=== PATIENT | female | born 1985 | race Caucasian/White ===

== ENCOUNTER 2016-07-30 21:43 | Emergency (ER) | payer SELFPAY ==
[2016-07-30 22:00] VITALS: BP 128/88
--- NOTE | 2016-07-30 22:35 | ED Physician Documentation ---
Upper Extremity Injury - HISTORIAN Historian: patient - HPI Stated Complaint: rt arm injury Chief Complaint: Upper Extremity Injury Onset: yesterday Where: home Context: fall Further Comments: yes (31 year old female patient presents with right wrist pain. States she fell on a toy last night, reports continued pain, worse with movement. States she took aleve this morning.) - ROS CONST: no problems CVS/RESP: none NEURO: none MS/SKIN/LYMPH: none GI/: denies: nausea, vomiting - PAST HX Past History: Rt handed, other (HYST) Allergies/Adverse Reactions: Allergies Allergy/AdvReac Type Severity Reaction Status Date / Time Sulfa (Sulfonamide Allergy Intermediate edema Verified 07/30/16 21:56 Antibiotics) Home Medications: Ambulatory Orders Medication Instructions Recorded NK [NK] 07/30/16 - SOCIAL HX Smoking History: non-smoker - FAMILY HX Family History: denies: none - VITAL SIGNS Vital Signs: Vital Signs Temp Pulse Resp BP Pulse Ox 98 F 87 16 128/88 99 07/30/16 21:44 07/30/16 21:44 07/30/16 21:44 07/30/16 21:44 07/30/16 21:44 - REVIEWED ASSESSMENTS Nursing Assessment Reviewed: Yes Vitals Reviewed: Yes ED Results Lab/Radiology - Radiology Radiology Impressions: 3 views of the right wrist Clinical history: Right wrist pain Findings: No acute fracture dislocation is identified. Alignment is normal. The soft tissues are unremarkable. Impression: Negative - Orders Orders: ED Orders Category Date Time Status WRIST 3 VIEWS OR MORE [RAD] Stat Exams 07/30/16 Ordered Ketorolac Tromethamine [Toradol] Med 07/30/16 22:35 Once 60 mg IM NOW ONE Upper Extremity Injury Physic - Physical Exam General Appearance: mild distress Hand: normal inspection, non-tender, no evidence of injury, normal ROM Wrist: normal inspection, ecchymosis (right), limited ROM (right), pain (right) , soft tissue tenderness (right) Shoulder: normal inspection, non-tender, no evidence of injury, normal ROM Neuro/Vascular/Tendon: no vascular compromise, motor nml, sensation nml, ROM nml Skin: warm,dry, other (abrasion right elbow) Resp/CVS: reg. rate & rhythm Discharge Clincal Impression: Sprain of wrist, right Qualifiers: Encounter type: initial encounter Qualified Code(s): S63.501A - Unspecified sprain of right wrist, initial encounter Referrals: Betty Patton PRN [Primary Care Provider] - 2 Days Additional Instructions: Ice Rest Elevation If you are unable to bear weight and continuing to have signficant pain on day 3 -4; see your PCP for re-evaluation and additional xrays. You may use Tylenol every 4hour as needed for pain. Limit your dose to less than 4 G per day. Alternate with Ibuprofen 600-800mg three times a day with food as needed. Do not take for more than 5 days in a row. Home Medications: Ambulatory Orders NK [NK] 07/30/16 Condition: Stable Disposition: 01 HOME, SELF-CARE Decision to Admit: NO Decision Time: 22:35
[2016-07-30] MEDS: KETOROLAC TROMETHAMINE 60 MG/2 ML VIAL IM ONE (22:41)
--- NOTE | 2016-07-31 06:52 | Diagnostic Imaging Report ---
CAMILLE QUIÑONEZ (LITA) - ER~ [facility] [address] [address] ~ ~ ~ ~ Report Submission Date: Jul 30, 2016 10:32:57 PM CDT Patient ~ Study Name: AMERICA BRUNO ~ Date: Jul 30, 2016 10:11:15 PM CDT ~ Modality Type: CR Gender: F ~ Description: UPPER EXTREMITY : 83 ~ Institution: [facility] Physician: CAMILLE QUIÑONEZ) - ER ~ ~ ~ ~ 3 views of the right wrist Clinical history: Right wrist pain Findings: No acute fracture dislocation is identified. Alignment is normal. The soft tissues are unremarkable. Impression: Negative ~ Electronically signed on Jul 30, 2016 10:32:57 PM CDT by: George VILLEGAS
== END 2016-07-30 22:49 | disposition home or self-care (01) ==
LOC: ED 21:43
DX: S63.501A Unspecified sprain of right wrist, initial encounter (principal); X58.XXXA Exposure to other specified factors, initial encounter; Y93.9 Activity, unspecified; Y99.9 Unspecified external cause status
CPT/HCPCS: 73110; J1885; 96372; 99283

== ENCOUNTER 2017-03-06 20:31 | Emergency (ER) | payer SELFPAY ==
--- NOTE | 2017-03-06 22:07 | ED Physician Documentation ---
Fall - HISTORIAN Historian: patient - HPI Stated Complaint: FALL; RLE INJ Chief Complaint: Fall Onset: just prior to arrival Where: home Context: tripped (on stairs) r: mild Associated Symptoms:: no loss of consciousness Location of Pain/Injury: lower extremity (right), hip (right) Injury to Right Extremity: hip, leg Injury to Left Extremity: none Further Comments: yes (31 year old female patient presents with complaint of right lower leg and foot pain. Patient states she missed a step, fell down 3-4 stairs. Denies LOC, able to ambulate.) - ROS CONST: no problems NEURO: denies: dizziness, anxiety, depression MS/SKIN/LYMPH: neck pain. denies: back pain EYES/ENT: none CVS/RESP: none GI/: denies: nausea, vomiting - PAST HX Past History: none Allergies/Adverse Reactions: Allergies Allergy/AdvReac Type Severity Reaction Status Date / Time Sulfa (Sulfonamide Allergy Intermediate edema Verified 03/06/17 21:03 Antibiotics) Home Medications: Ambulatory Orders Medication Instructions Recorded Baclofen [Liorasal] 10 mg PO TID PRN #30 tablet 03/06/17 Ketorolac Tromethamine [Toradol] 10 mg PO TID #15 tablet 03/06/17 - SOCIAL HX Smoking History: cigarettes - FAMILY HX Family History: denies: none - VITAL SIGNS Vital Signs: Vital Signs Temp Pulse Resp BP Pulse Ox 98.5 F 87 18 133/85 99 03/06/17 20:39 03/06/17 20:39 03/06/17 20:39 03/06/17 20:39 03/06/17 20:39 - REVIEWED ASSESSMENTS Nursing Assessment Reviewed: Yes Vitals Reviewed: Yes Progress - Progress Progress: Ecchymosis noted on right medial knee area; no c/o knee pain. No abrasions or ecchymosis noted on right lower extremity, foot or hip. After exam - patient now c/o neck pain, re-assessed - tenderness at C5-6 midline. Patient's mother now reports "patient isn't answering questions correctly". Oriented x 3, answers all of my questions appropriately. Will progress with CT c-spine and head. Reviewed all CTs and xray results with patient, patient requesting multiple days off work. Reviewed discharge plan, medicated for pain with toradol and norflex. 03/07/2017 0830 Answered phone call from patient, requesting additional days off work. Has not picked up prescriptions yet. Explained she was clear to go to work, would need to see PCP if she wanted additional time off. ED Results Lab/Radiology - Orders Orders: ED Orders Category Date Time Status CT BRAIN W/O CONTRAST Stat Exams 03/06/[address] C-SPINE W/O CONTRAST Stat Exams 03/06/17 Ordered FOOT 3 VIEWS OR MORE [RAD] Stat Exams 03/06/17 Ordered RT HIP 1V [RAD] Stat Exams 03/06/17 Ordered TIBIA & FIBULA 2 VIEW [RAD] Stat Exams 03/06/17 Ordered Ketorolac Tromethamine [Toradol] Med 03/06/17 22:02 Discontinued 60 mg IM NOW ONE Orphenadrine Citrate [Norflex] Med 03/06/17 22:02 Discontinued 60 mg IM NOW ONE Fall Physical Exam - Physical Exam General Appearance: moderate distress Head: non-tender, no swelling, no obvious injury Neck: painless ROM, trachea midline Eye: KELLIE, EOMI, lids & conjunct. nml ENT: nml external inspection, no dental injury, no oral injury, airway nml Resp/CVS: chest non-tender, no ecchymosis, breath sounds nml, no resp. distress , heart sounds nml Abdomen: soft, no organomegaly, normal bowel sounds, no abdominal bruit, no distension Neuro: oriented x3, CN's nml as tested, sensation nml, motor nml, mood/affect nml, respite worker nml, reflexes nml, respite worker symmetrical Skin: color nml, no rash, ecchymosis (right medial knee), nml palp., dry Back: normal inspection, no CVA tenderness Extremities: atraumatic, pelvis stable, hips non-tender, no pedal edema, nml ROM , nml color/temp Joint: joints nml, nml ROM - [place] Coma Score Eyes Open: Spontaneous Speech: Oriented Motor: Obeys Commands Discharge Clincal Impression: Fall (on) (from) other stairs and steps, initial encounter Contusion of left leg Qualifiers: Encounter type: initial encounter Qualified Code(s): S80.12XA - Contusion of left lower leg, initial encounter Closed head injury without loss of consciousness Qualifiers: Encounter type: initial encounter Qualified Code(s): S09.90XA - Unspecified injury of head, initial encounter Prescriptions: Baclofen [Liorasal] 10 mg PO TID PRN #30 tablet PRN Reason: Spasms Ketorolac Tromethamine [Toradol] 10 mg PO TID #15 tablet Referrals: Betty Patton, PRN [Primary Care Provider] - 2 Days Additional Instructions: Rest Ice to leg and hip back feeder plywood layup line your 2 prescriptions and start them in the morning. Condition: Stable Disposition: 01 HOME, SELF-CARE Decision to Admit: NO Decision Time: 22:07
[2017-03-06] MEDS: ORPHENADRINE CITRATE 60 MG/2ML IM ONE (22:20)
[2017-03-06] MEDS: KETOROLAC TROMETHAMINE 60 MG/2 ML VIAL IM ONE (22:20)
[2017-03-06 22:44] VITALS: BP 121/70
--- NOTE | 2017-03-07 06:46 | Diagnostic Imaging Report ---
CAMILLE QUIÑONEZ (LITA) - ER [facility] [address] [facility] [address] 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 Meza white differentiation is intact. There is no intracranial hemorrhage. Left maxillary sinus fluid is present. The skull is intact. Impression: 1. Intact brain and skull. 2. Left maxillary sinus fluid versus retention cyst. Electronically signed on Mar 06, 2017 9:37:45 PM WARP KNITTING MACHINE OPERATOR by: Asim VILLEGAS
--- NOTE | 2017-03-07 06:46 | Diagnostic Imaging Report ---
CAMILLE QUIÑONEZ (LITA) - [facility] [address] [facility] [address] [address] Report Submission Date: Mar 06, 2017 9:39:30 PM SUEDING AND BUFFING MACHINE OPERATOR Patient Study Name: AMERICA BRUNO Date: Mar 06, 2017 9:06:08 PM SUEDING AND BUFFING MACHINE OPERATOR Modality Type: CT\SR Gender: F Description: CT C-SPINE W/O CONTRAS : 83 Institution: [facility] Physician: CAMILLE QUIÑONEZ) - ER Computed tomography of the cervical spine without contrast History: FALL, PAIN, HIT BACK OF HEAD/NECK ON GROUND, NO LOSS OF CONSCIOUSNESS Findings: Transverse cervical spine sections are obtained without contrast revealing left maxillary sinus mucosal thickening and fluid. The cervical spine is intact without fracture, disc space narrowing, subluxation, paraspinal swelling. Impression: 1. Acute and chronic left maxillary sinusitis. 2. Intact cervical spine. Electronically signed on Mar 06, 2017 9:39:30 PM SUEDING AND BUFFING MACHINE OPERATOR by: Asim VILLEGAS
--- NOTE | 2017-03-07 06:47 | Diagnostic Imaging Report ---
CAMILLE QUIÑONEZ (LITA) - ER [facility] [address] [facility] [address] 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 Electronically signed on Mar 06, 2017 9:40:23 PM GROUNDSKEEPER PORTER by: Asim VILLEGAS
--- NOTE | 2017-03-07 06:47 | Diagnostic Imaging Report ---
CAMILLE QUIÑONEZ (LITA) - [place] [address] [facility] [address] [address] Report Submission Date: Mar 06, 2017 9:39:59 PM SOFT HAT BINDER Patient Study Name: AMERICA BRUNO Date: Mar 06, 2017 9:17:02 PM SOFT HAT BINDER Modality Type: CR Gender: F Description: PELVIS : 83 Institution: Physician: CAMILLE QUIÑONEZ) - ER Right hip 2 views History: Pain after fall Findings: The right hip is intact without fracture, dislocation, arthropathy, or focal bone lesion. Electronically signed on Mar 06, 2017 9:39:59 PM SOFT HAT BINDER by: Asim VILLEGAS
--- NOTE | 2017-03-07 09:39 | Diagnostic Imaging Report ---
CAMILLE QUIÑONEZ (LITA) - ER [facility] [address] [facility] [address] Report Submission Date: Mar 06, 2017 9:41:11 PM LOCK UP WORKER Patient Study Name: AMERICA BRUNO Date: Mar 06, 2017 9:27:39 PM LOCK UP WORKER Modality Type: CR Gender: F Description: LOWER EXTREMITY : 83 Institution: [facility] Physician: CAMILLE QUIÑONEZ) - ER Right foot 3 views History: Pain after fall Findings: The right foot is unremarkable without fracture, dislocation, arthropathy, or focal bone lesion. Electronically signed on Mar 06, 2017 9:41:11 PM LOCK UP WORKER by: Asim VILLGEAS
== END 2017-03-06 22:26 | disposition home or self-care (01) ==
LOC: ED 20:31
DX: S80.12XA Contusion of left lower leg, initial encounter (principal); S09.90XA Unspecified injury of head, initial encounter; W10.9XXA Fall (on) (from) unspecified stairs and steps, initial encounter
CPT/HCPCS: 70450; 72125; 73501; 73590; 73630; 96372; 99283; J1885; J2360

== ENCOUNTER 2017-03-19 08:40 | Emergency (ER) | payer SELFPAY ==
[2017-03-19 08:57] VITALS: BP 134/83
--- NOTE | 2017-03-19 09:04 | ED Physician Documentation ---
General Adult - HISTORIAN Historian: patient - HPI Stated Complaint: sore throat Chief Complaint: General Adult Onset: days ago (1) Timing: still present Severity: moderate Further Comments: yes (Pt is a 31 yo female with sore throat, chills, muscle ache x 1 day. Family members have been ill with Influenza A.) - ROS CONST: chills, other (muscle ache) EYES/ENT: sore throat CVS/RESP: cough GI/: none MS/SKIN/LYMPH: none - PAST HX Past History: none Allergies/Adverse Reactions: Allergies Allergy/AdvReac Type Severity Reaction Status Date / Time Sulfa (Sulfonamide Allergy Intermediate edema Verified 03/19/17 08:57 Antibiotics) Home Medications: Ambulatory Orders Medication Instructions Recorded NK [NK] 03/19/17 - SOCIAL HX Smoking History: non-smoker - FAMILY HX Family History: No - VITAL SIGNS Vital Signs: Vital Signs Temp Pulse Resp BP Pulse Ox 98.8 F 90 14 134/83 99 03/19/17 08:42 03/19/17 08:42 03/19/17 08:42 03/19/17 08:42 03/19/17 08:42 - REVIEWED ASSESSMENTS Nursing Assessment Reviewed: Yes Vitals Reviewed: Yes Progress - Progress Progress: Rx Tamiflu 75 mg. Take one by mouth every 12 hrs for 5 days. General Adult Physical Exam - PHYSICAL EXAM GENERAL APPEARANCE: mild distress EENT: pharynx normal, TM's nml NECK: normal inspection, supple. No: lymphadenopathy RESPIRATORY: no resp distress, chest non-tender, breath sounds normal CVS: reg rate & rhythm, heart sounds normal BACK: normal inspection, no CVA tenderness SKIN: warm/dry, normal color EXTREMITIES: non-tender, normal range of motion, no evidence of injury NEURO: oriented X3, motor nml, sensation nml Discharge Clincal Impression: Probable Influenza Referrals: Betty Patton PRN [Primary Care Provider] - Condition: Good Disposition: 01 HOME, SELF-CARE Decision to Admit: NO Decision Time: 09:06
== END 2017-03-19 09:07 | disposition home or self-care (01) ==
LOC: ED 08:40
DX: J02.9 Acute pharyngitis, unspecified (principal); R05 Cough; M79.1 Myalgia; R53.81 Other malaise
CPT/HCPCS: 87070; 87880; 99282

== ENCOUNTER 2017-04-29 11:51 | Emergency (ER) | payer OTHER ==
[2017-04-29 12:11] VITALS: BP 138/69
--- NOTE | 2017-04-29 12:23 | ED Physician Documentation ---
Female Urogenital Problems - HISTORIAN Historian: patient - HPI Stated Complaint: Burning on urination Chief Complaint: Female Urogenital Problems Further Comments: yes (31 year old female patient presents with complaints of burning, frequency and painful urination which started 2 days ago and has become worse. Patient denies flank pain, no history of renal calculi, denies fever or chills.) - Associated Symptoms Urinary Symptoms: frequent urination, discomfort w/ urination, burning w/ urination, urgency w/ urination, pain w/ urination. denies: blood in urine Discharge: denies: vaginal discharge, vaginal fluid leakage, odorous discharge - ROS CONST: none GI/: denies: nausea, vomiting, decreased appetite, diarrhea, black stools, bloody stools, other CVS/RESP: none EYES/ENT: none NEURO/PSYCH: none MS/SKIN/LYMPH: none - PAST HX Past History: none Surgeries/Procedures: hysterectomy, other (Prolapsed uterus and rectum - repair ; left wrist ORIF) Allergies/Adverse Reactions: Allergies Allergy/AdvReac Type Severity Reaction Status Date / Time Sulfa (Sulfonamide Allergy Intermediate edema Verified 04/29/17 11:59 Antibiotics) Home Medications: Ambulatory Orders Medication Instructions Recorded Ciprofloxacin HCl [Cipro] 500 mg PO BID #14 tablet 04/29/17 Phenazopyridine HCl [Pyridium] 200 mg PO TID #6 tablet 04/29/17 - SOCIAL HX Smoking History: non-smoker - FAMILY HX Family History: denies: none - VITAL SIGNS Vital Signs: Vital Signs Temp Pulse Resp BP Pulse Ox 98.0 F 73 18 138/69 99 04/29/17 12:00 04/29/17 12:00 04/29/17 12:00 04/29/17 12:00 04/29/17 12:00 - REVIEWED ASSESSMENTS Nursing Assessment Reviewed: Yes Vitals Reviewed: Yes ED Results Lab/Radiology - Orders Orders: ED Orders Category Date Time Status UA W/MICRO IF INDICATED Stat Lab 04/29/17 12:00 Ordered Female Urogenital Problems - EXAM General Appearance: mild distress EENT: eye inspection normal, KELLIE Respiratory: no resp. distress, breath sounds nml CVS: reg rate & rhythm, heart sounds normal, equal pulses, no murmur, no gallop , PMI nml, no JVD, no friction rub, 24 Abdomen: soft, non-tender, no organomegaly, no distention, nml bowel sounds Back: non-tender, painless ROM. No: CVA tenderness Skin: color nml, no rash, warm,dry Extremities: non-tender, normal range of motion, no evidence of injury, no edema , J, MARINE DRILLER Neuro: oriented X3, motor nml, sensation nml, mood/affect nml Discharge Clincal Impression: UTI (urinary tract infection) Qualifiers: Urinary tract infection type: acute cystitis Hematuria presence: with hematuria Qualified Code(s): N30.01 - Acute cystitis with hematuria Prescriptions: Ciprofloxacin HCl [Cipro] 500 mg PO BID #14 tablet Phenazopyridine HCl [Pyridium] 200 mg PO TID #6 tablet Referrals: Betty Patton PRN [Primary Care Provider] - 2 Days Condition: Stable Disposition: 01 HOME, SELF-CARE Decision to Admit: NO Decision Time: 12:23
[2017-04-30 06:51] LABS: COLOR,URINE AMBER (YELLOW)
[2017-04-30 06:52] LABS: APPEARANCE,URINE CLOUDY (CLEAR); OCCULT BLOOD,URINE 3+ (NEGATIVE); UROBILINOGEN URINE 0.2 Eu (0.2-1.0)
== END 2017-04-29 12:27 | disposition home or self-care (01) ==
LOC: ED 11:51
DX: N30.01 Acute cystitis with hematuria (principal)
CPT/HCPCS: 81002; 87086; 99282; 99283

== ENCOUNTER 2017-10-05 21:48 | Emergency (ER) | payer SELFPAY ==
[2017-10-05] MEDS ORDERED: PHENAZOPYRIDINE HCL 200 MG TABLET PO ONE (22:13)
[2017-10-05] MEDS ORDERED: NITROFURANTOIN 100 MG CAPSULE PO ONE (22:13)
[2017-10-05 22:19] VITALS: BP 116/75
--- NOTE | 2017-10-05 22:21 | ED Physician Documentation ---
General Adult - HISTORIAN Historian: patient - HPI Stated Complaint: UTI symptoms Chief Complaint: General Adult Additional Information: Urgency, dribbling, burning dysuria, low abd pain, since last evening. Frequent UTI's in the past. Has felt hot and cold. No modifying factors or associated signs. - ROS CONST: other (abve) - PAST HX Past History: other (frequent UTI's) Surgeries/Procedures: other (hysterectomy, bladder prolapse) Allergies/Adverse Reactions: Allergies Allergy/AdvReac Type Severity Reaction Status Date / Time Sulfa (Sulfonamide Allergy Intermediate edema Verified 10/05/17 22:19 Antibiotics) Home Medications: Ambulatory Orders Medication Instructions Recorded NK 10/05/17 - SOCIAL HX Smoking History: non-smoker - FAMILY HX Family History: No - VITAL SIGNS Vital Signs: Vital Signs Temp Pulse Resp BP Pulse Ox 98.8 F 87 16 116/75 98 10/05/17 21:49 10/05/17 21:49 10/05/17 21:49 10/05/17 21:49 10/05/17 21:49 - REVIEWED ASSESSMENTS Nursing Assessment Reviewed: Yes ED Results Lab/Radiology - Orders Orders: ED Orders Category Date Time Status UA [URINALYSIS] Routine Lab 10/05/17 Ordered Nitrofurantoin Monohyd/M-Cryst [Macrobid] Med 10/05/17 22:13 Once 100 mg PO NOW ONE Phenazopyridine HCl [Pyridium] Med 10/05/17 22:13 Once 200 mg PO NOW ONE General Adult Physical Exam - PHYSICAL EXAM GENERAL APPEARANCE: mild distress EENT: eye inspection normal, ENT inspection normal, pharynx normal NECK: normal inspection, supple RESPIRATORY: no resp distress, breath sounds normal CVS: reg rate & rhythm, heart sounds normal, no murmur ABDOMEN: soft, normal bowel sounds, non-tender BACK: normal inspection SKIN: warm/dry, normal color EXTREMITIES: normal range of motion (gait and stance), no evidence of injury NEURO: CN's nml as tested, motor nml, sensation nml, cognition normal Discharge Clincal Impression: Urinary tract infection Qualifiers: Urinary tract infection type: acute cystitis Hematuria presence: with hematuria Qualified Code(s): N30.01 - Acute cystitis with hematuria Referrals: Betty Patton PRN [Primary Care Provider] - 2 Days Condition: Good Disposition: 01 HOME, SELF-CARE Decision to Admit: NO Decision Time: 22:30
[2017-10-05] MEDS ORDERED: PHARMACY KEY 1 EACH EACH MC ONE (22:49)
[2017-10-06 05:55] LABS: APPEARANCE,URINE CLOUDY (CLEAR); COLOR,URINE YELLOW (YELLOW); OCCULT BLOOD,URINE 3+ (NEGATIVE); PH URINE 5.5 (5.0 - 8.0); UROBILINOGEN URINE 0.2 Eu (0.2-1.0)
== END 2017-10-05 22:57 | disposition home or self-care (01) ==
LOC: ED 21:48
DX: N30.01 Acute cystitis with hematuria (principal)
CPT/HCPCS: 81002; 87086; 87186; 99283

== ENCOUNTER 2018-01-31 07:49 | Emergency (ER) | payer SELFPAY ==
[2018-01-31] MEDS ORDERED: IPRATROPIUM/ALBUTEROL SULFATE 3 ML AMPUL.NEB NEB STA (08:14)
--- NOTE | 2018-01-31 08:14 | ED Physician Documentation ---
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 pt presents to the ED via POV c/o productive cough x 2 weeks, malaise, and fever of 102 for which pt took ibuprofen. pt daughter recently admitted to hospital for pneumonia. pt denies current chest pain, dyspnea, syncope/near syncope, headache, dizziness, visual disturbances, n/v/d, rash, dysuria, trauma. melena or hematochezia, bleeding or easy bruising, change in bowel or bladder function, no recent weight loss/gain, anxiety or depression. ROS Negative unless otherwise specified. - ROS CONST/EYES: other (malaise) CVS/RESP: denies: chest pain, shortness of breath, palpitations LYMPH: denies: leg swelling, rash, swollen glands, ankle swelling GI/: none. denies: abdominal pain, problems urinating, vomiting, nausea, diarrhea NEURO/PSYCH: denies: fainting, dizziness, confusion, anxiety, depression MS/SKIN: denies: joint pain, muscle aches, rash - PAST HX Lung Disease: none Surgeries/Procedures: hysterectomy, other (Left Wrist) Allergies/Adverse Reactions: Allergies Allergy/AdvReac Type Severity Reaction Status Date / Time Sulfa (Sulfonamide Allergy Intermediate edema Verified 01/31/18 08:05 Antibiotics) Home Medications: Ambulatory Orders Medication Instructions Recorded NK 10/05/17 - SOCIAL HX Smoking History: non-smoker Alcohol Use: none Drug Use: none - FAMILY HX Family History: none - VITAL SIGNS Vital Signs: Vital Signs Temp Pulse Resp BP Pulse Ox 98.5 F 74 19 127/77 96 01/31/18 08:00 01/31/18 08:15 01/31/18 08:00 01/31/18 08:15 01/31/18 08:00 - REVIEWED ASSESSMENTS Nursing Assessment Reviewed: Yes Vitals Reviewed: Yes ED Results Lab/Radiology - Orders Orders: ED Orders Category Date Time Status Orthostatics 1T Care 01/31/18 08:15 Ordered Benzonatate [Tessalon] Med 01/31/18 08:15 Once 100 mg PO NOW ONE Ipratropium/Albuterol Sulfate [Duoneb] Med 01/31/18 08:14 Stat 3 ml NEB NOW STA Upper Respiratory Symptoms - EXAM General Appearance: no acute distress, alert EENT: eyes nml inspection, lids & conjunct. nml, PERRL, ear nml, pharynx nml, airway nml, other (nasal congestion). No: pain over sinuses, pharyngeal erythema Neck: normal inspection, thyroid normal. No: lymphadenopathy Respiratory: no resp. distress, breath sounds nml, no pain on inspiration, speaks full sentences, no pleuritic chest pain, other (cough with deep inspiration). No: wheezes, rales, rhonchi Abdomen: non-tender, nml bowel sounds, no distention. No: guarding CVS: reg rate & rhythm, heart sounds normal, equal pulses, no murmur, no gallop, PMI nml, no JVD Skin: color nml, no rash, warm,dry Extremities: non-tender, normal range of motion, no evidence of injury, no edema, J, DEVELOPER ADVISOR Neuro/Psych: oriented x3, neuro intact, mood/affect nml Discharge Clincal Impression: Bronchitis Referrals: Betty Patton PRN [Primary Care Provider] - 2 Days Additional Instructions: azithromycin 250 mg. Two tabs day one. One tab days 2-5 Tessalon perles 100 mg three times a day as needed for cough. May also Use over the counter cough medicine. Rest. do not work for 3 days. Increase fluids like gatoraid or other electrolyte replacement. Prednisone 5 mg taper once daily as directed Ibuprofen 600 mg every 6 hours for fever/inflammation Tylenol 650 mg every 4-6 hours for pain/fever take multivitamin daily use cool humidifier in room you are sleeping. you may sit in bathroom outside hot shower to inhale the steam to soothe lungs seek medical care immediately if difficult to wake, difficulty breathing, feeling faint or fainting, increased rash, chest pain, shortness of breath, or fever not controlled by tylenol/motrin or any concern. follow up with primary care next week or before if not improving as expected. PLEASE UNDERSTAND THAT THIS IS AN EMERGENCY EVALUATION FOR YOUR COMPLAINT AND BY NATURE IS LIMITED AND NOT A SUBSTITUTE FOR ONGOING MEDICAL CARE. EVEN THOUGH TEST RESULTS AND TREATMENT PLAN WERE EXPLAINED THERE MAY BE A NEED FOR ADDITIONAL TESTING TO FULLY DETERMINE THE EXTENT OF YOUR ILLNESS/INJURY/OR CONCERN SO YOU SHOULD CONTACT AND OR ESTABLISH WITH A PRIMARY CARE PROVIDER (OR REFERRAL DOCTOR IF APPLICABLE) FOR AN APPOINTMENT SOON POSSIBLE Condition: Good Disposition: 01 HOME, SELF-CARE Decision to Admit: NO Date of Decison to Admit: 01/31/18 Decision Time: 08:08
[2018-01-31] MEDS ORDERED: BENZONATATE 100 MG CAPSULE PO ONE (08:15)
[2018-01-31 08:38] VITALS: BP 124/72
== END 2018-01-31 08:36 | disposition home or self-care (01) ==
LOC: ED 07:49
DX: J40 Bronchitis, not specified as acute or chronic (principal)
CPT/HCPCS: 94640; 99282; 99283; A9270

== ENCOUNTER 2018-08-12 09:50 | Emergency (ER) | payer SELFPAY ==
--- NOTE | 2018-08-12 10:06 | ED Physician Documentation ---
General Adult - HISTORIAN Historian: patient - HPI Stated Complaint: burning with urination and low back pain x 2 weeks Chief Complaint: Female Urogenital Problems Onset: days ago (14) Timing: worse Severity: moderate Further Comments: yes (she states over two weeks ago she had some mild burning with urination and frequency. She felt the symptoms started to improve - she did note that two days ago the symptoms started to increase. She denies a fever. Mild nausea (none now). She has burning with urination, frequency and low back pain (started on right lower back and now on both sides)) - ROS CONST: no problems GI/: none - PAST HX Past History: none Other History: none Immunizations: UTD Allergies/Adverse Reactions: Allergies Allergy/AdvReac Type Severity Reaction Status Date / Time Sulfa (Sulfonamide Allergy Intermediate edema Verified 08/12/18 10:10 Antibiotics) Home Medications: Ambulatory Orders Medication Instructions Recorded NK 10/05/17 - SOCIAL HX Smoking History: non-smoker Alcohol Use: none Drug Use: none - FAMILY HX Family History: No - VITAL SIGNS Vital Signs: Vital Signs Temp Pulse Resp BP Pulse Ox 124/72 01/31/18 08:35 - REVIEWED ASSESSMENTS Nursing Assessment Reviewed: Yes Vitals Reviewed: Yes Progress - Progress Progress: 1050: she states pain is improved. DG ED Results Lab/Radiology - Radiology Radiology Impressions: Exam: CT abdomen and pelvis without contrast. History: Right flank pain. Axial images through the abdomen and pelvis without oral or IV contrast is submitted along with sagittal and coronal reformatted images. The visualized lower lung matute are clear. No free intraperitoneal air is identified. The gallbladder is distended without stones. The liver, spleen and pancreas are normal attenuation. The adrenal glands are normal configuration. The abdominal aorta is of normal caliber. No periaortic lymphadenopathy is detected on this nonenhanced study. Both kidneys are normal attenuation. No hydronephrosis or hydroureter is identified. The urinary bladder is partially distended without intrinsic filling defect. The uterus is not well visualized. A mild amount of free cul-de-sac fluid is noted. The appendix is of normal configuration. Small bowel is of normal caliber. Air and stool seen throughout the large intestine. No inflammatory changes in the mesentery or ascites is identified. Impression: No hydronephrosis or hydroureter is identified. The uterus is not well visualized. A small amount of free cul-de-sac fluid is identified. Nonspecific bowel gas pattern. No inflammatory changes in the mesentery or ascites is identified. Electronically signed on Aug 12, 2018 11:10:32 AM CDT by: Thierry Davidson General Adult Physical Exam - PHYSICAL EXAM GENERAL APPEARANCE: no distress EENT: eye inspection normal, no signs of dehydration NECK: normal inspection RESPIRATORY: no resp distress, chest non-tender, breath sounds normal CVS: reg rate & rhythm, heart sounds normal, no murmur ABDOMEN: soft, tenderness (bladder with palpation ) BACK: normal inspection, CVA tenderness (R), CVA tenderness (L) SKIN: warm/dry, normal color EXTREMITIES: non-tender NEURO: oriented X3 Discharge Clincal Impression: UTI (urinary tract infection) Qualifiers: Urinary tract infection type: site unspecified Hematuria presence: without hematuria Qualified Code(s): N39.0 - Urinary tract infection, site not specified Referrals: Betty Patton PRN [Primary Care Provider] - 2 Days Comments: 1. Macrobid 100 mg take 1 by mouth twice daily x 7 days 2. OTC meds as needed for pain as directed 3. Increase fluids 4. Follow up with PCP in 2-4 days 5. Return to ER for any increased concerns Condition: Stable Disposition: 01 HOME, SELF-CARE Decision to Admit: NO Date of Decison to Admit: 08/12/18 Decision Time: 11:34
[2018-08-12 10:10] VITALS: BP 151/58
[2018-08-12] MEDS: KETOROLAC TROMETHAMINE 30 MG/1ML VIAL IV ONE (10:23)
[2018-08-12] MEDS: 0.9 % SODIUM CHLORIDE 1,000 ML IV ONE (10:23)
[2018-08-12 10:30] LABS: BASOPHILS % 0.5 % (0.0-1.5); NEUTROPHILS # 4.5 # k/uL (1.4-7.7)
[2018-08-12 10:32] LABS: APPEARANCE,URINE CLOUDY (CLEAR); COLOR,URINE YELLOW (YELLOW); OCCULT BLOOD,URINE 2+ (NEGATIVE); UROBILINOGEN URINE 0.2 Eu (0.2-1.0)
[2018-08-12 10:46] LABS: eGFR (Non-African) > 60
--- NOTE | 2018-08-12 11:31 | Diagnostic Imaging Report ---
DIANE HOWARD [facility] [id number] [facility] [address] [place], [place]. [address] Report Submission Date: Aug 12, 2018 11:10:32 AM CDT Patient Study Name: AMERICA BRUNO Date: Aug 12, 2018 10:28:18 AM CDT Modality Type: CT\SR Gender: F Description: CT STONE PROTOCOL : 83 Institution: [facility] Physician: DIANE HOWARD Exam: CT abdomen and pelvis without contrast. History: Right flank pain. Axial images through the abdomen and pelvis without oral or IV contrast is submitted along with sagittal and coronal reformatted images. The visualized lower lung matute are clear. No free intraperitoneal air is identified. The gallbladder is distended without stones. The liver, spleen and pancreas are normal attenuation. The adrenal glands are normal configuration. The abdominal aorta is of normal caliber. No periaortic lymphadenopathy is detected on this nonenhanced study. Both kidneys are normal attenuation. No hydronephrosis or hydroureter is identified. The urinary bladder is partially distended without intrinsic filling defect. The uterus is not well visualized. A mild amount of free cul-de-sac fluid is noted. The appendix is of normal configuration. Small bowel is of normal caliber. Air and stool seen throughout the large intestine. No inflammatory changes in the mesentery or ascites is identified. Impression: No hydronephrosis or hydroureter is identified. The uterus is not well visualized. A small amount of free cul-de-sac fluid is identified. Nonspecific bowel gas pattern. No inflammatory changes in the mesentery or ascites is identified. Electronically signed on Aug 12, 2018 11:10:32 AM CDT by: Thierry VILLEGAS
== END 2018-08-12 11:50 | disposition home or self-care (01) ==
LOC: ED 09:50
DX: N39.0 Urinary tract infection, site not specified (principal)
CPT/HCPCS: 74176; 80053; 81002; 85025; 87086; 96361; 96374; 99283; 99284; J1885; J7030; S1016

== ENCOUNTER 2018-10-14 09:11 | Emergency (ER) | payer SELFPAY ==
--- NOTE | 2018-10-14 09:36 | ED Physician Documentation ---
General Adult - HISTORIAN Historian: patient - HPI Stated Complaint: Poison delisa/UTi Sx Chief Complaint: General Adult Onset: days ago (7 days) Timing: worse Further Comments: yes (33 year old female presents with complaints of poison delisa x 1 week; reports burning and urinary frequency. Patient reports long history of hematuria, is followed by urology.) - ROS CONST: no problems EYES/ENT: none CVS/RESP: none GI/: problems urinating MS/SKIN/LYMPH: rash NEURO/PSYCH: denies: headache, fainting, dizziness, tingling, numbness, difficulty walking, difficulty with speech, anxiety, depression, other - PAST HX Past History: other (hematuria) Allergies/Adverse Reactions: Allergies Allergy/AdvReac Type Severity Reaction Status Date / Time Sulfa (Sulfonamide Allergy Intermediate edema Verified 10/14/18 09:27 Antibiotics) Home Medications: Ambulatory Orders Medication Instructions Recorded Methylprednisolone [Medrol] 4 mg PO DAILY #1 tab.ds.pk 10/14/18 - SOCIAL HX Smoking History: cigarettes - FAMILY HX Family History: No - VITAL SIGNS Vital Signs: Vital Signs Temp Pulse Resp BP Pulse Ox 98.7 F 68 16 126/89 99 10/14/18 09:11 10/14/18 09:11 10/14/18 09:11 10/14/18 09:11 10/14/18 09:11 - REVIEWED ASSESSMENTS Nursing Assessment Reviewed: Yes Vitals Reviewed: Yes ED Results Lab/Radiology - Orders Orders: ED Orders Category Date Time Status UA W/MICRO IF INDICATED Stat Lab 10/14/18 09:26 Ordered methylPREDNISolone ACETATE [DEPO-Medrol] Med 10/14/18 09:29 Discontinued 80 mg IM NOW ONE General Adult Physical Exam - PHYSICAL EXAM GENERAL APPEARANCE: mild distress EENT: eye inspection normal, KELLIE RESPIRATORY: no resp distress CVS: reg rate & rhythm SKIN: warm/dry, normal color, other (linear rash noted on arms; left side of face. ) EXTREMITIES: non-tender, normal range of motion, no evidence of injury, no edema, J, [employer] NEURO: oriented X3 Discharge Clincal Impression: Poison delisa dermatitis Prescriptions: Methylprednisolone [Medrol] 4 mg PO DAILY #1 tab.ds.pk Referrals: Betty Patton PRN [Primary Care Provider] - 2 Days Condition: Stable Disposition: 01 HOME, SELF-CARE Decision to Admit: NO Decision Time: 09:35
[2018-10-14] MEDS: methylPREDNISolone ACETATE 80 MG/ML VIAL IM ONE (09:37)
[2018-10-14 09:53] VITALS: BP 126/89
[2018-10-14 11:40] LABS: APPEARANCE,URINE CLOUDY (CLEAR); COLOR,URINE YELLOW (YELLOW); OCCULT BLOOD,URINE 2+ (NEGATIVE); UROBILINOGEN URINE 0.2 Eu (0.2-1.0)
[2018-10-14] MEDS ORDERED: 0.9 % SODIUM CHLORIDE 2,000 ML IV ONE (21:18)
== END 2018-10-14 09:39 | disposition home or self-care (01) ==
LOC: ED 09:11
DX: L23.7 Allergic contact dermatitis due to plants, except food (principal)
CPT/HCPCS: 81002; 96372; 99283; 99284; J1040

== ENCOUNTER 2018-12-18 09:34 | Emergency (ER) | payer SELFPAY ==
--- NOTE | 2018-12-18 10:02 | ED Physician Documentation ---
Headache - HISTORIAN Historian: patient - HPI Stated Complaint: headache, dysuria Chief Complaint: Headache Additional Information: Patient presents to ED with a 3 day history of headache and 2 day history of dysuria. Patient has taken tylenol for her headache but it just takes the edge off. She reports starting phentermine for weight loss about 5 weeks ago. PCP was called today, however, could not get her in to be seen. PCP was concerned about dehydration due to phentermine. Patient denies nausea/vomiting, fever, chills, abdominal pain or flank pain. Onset: days ago (3) Timing: gradual New Gradual Onset: Yes Exposure To: none Severity: moderate Quality: throbbing Associated Symptoms: denies: fever, chills, problems with vision, sensitivity to light, nausea, vomiting, neck pain, stiffness Preceding Symptoms: denies: visual disturbance - ROS NEURO/PSYCH: denies: confusion EYES/ENT: denies: difficulty swallowing, sinus pain CVS/RESP: denies: chest pain, shortness of breath GI/: other (dysuria). denies: abdominal pain, diarrhea MS/SKIN/LYMPH: denies: muscle aches - PAST HX Medical History: no pertinent history Surgical History: noncontributory Allergies/Adverse Reactions: Allergies Allergy/AdvReac Type Severity Reaction Status Date / Time Sulfa (Sulfonamide Allergy Intermediate edema Verified 12/18/18 10:00 Antibiotics) Home Medications: Ambulatory Orders Medication Instructions Recorded CiproFLOXacin HCL [Cipro] 500 mg PO BID 5 Days #10 tablet 12/18/18 Phentermine HCl [Adipex-P] 37.5 mg PO QDAY 12/18/18 - SOCIAL HX Smoking History: non-smoker Alcohol Use: none Drug Use: none - Family HX Family History: none - VITAL SIGNS Vital Signs: Vital Signs Temp Pulse Resp BP Pulse Ox 97.1 F L 69 16 141/70 99 12/18/18 09:41 12/18/18 09:41 12/18/18 09:41 12/18/18 09:41 12/18/18 09:41 - REVIEWED ASSESSMENTS Nursing Assessment Reviewed: Yes Vitals Reviewed: Yes ED Results Lab/Radiology - Lab Results Lab Results: Lab Results 12/18/18 12/18/18 12/18/18 10:00 10:00 09:51 WBC 8.20 K/ul K/ul (4.00-12.00) RBC 4.48 M/ul M/ul (3.90-5.20) Hgb 14.2 g/dL g/dL (11.5-16.0) Hct 42.2 % % (34.5-46.5) MCV 94.0 fl fl (80.0-100.0) MCH 31.6 pg pg (28.0-34.0) MCHC 33.6 g/dL g/dL (30.0-36.0) RDW 10.6 % L % (11.3-14.3) Plt Count 278 K/mm3 K/mm3 (130-400) Neut % (Auto) 74.1 % % (39.0-79.0) Lymph % (Auto) 16.5 % % (16.0-50.0) [place] % (Auto) 6.4 % % (0.0-11.0) Eos % (Auto) 2.7 % % (0.0-6.8) Baso % (Auto) 0.3 % % (0.0-1.5) Neut # (Auto) 6.1 # k/uL # k/uL (1.4-7.7) Lymph # (Auto) 1.4 # k/uL # k/uL (0.6-4.0) [place] # (Auto) 0.5 # k/uL # k/uL (0.0-0.9) Eos # (Auto) 0.2 # k/uL # k/uL (0.0-0.6) Baso # (Auto) 0.0 # k/uL # k/uL (0.0-0.5) Sodium 139 mmol/L mmol/L (137-145) Potassium 3.7 mmol/L mmol/L (3.5-5.1) Chloride 101 mmol/L mmol/L (98-107) Carbon Dioxide 29 mmol/L mmol/L (22-30) Anion Gap 12.7 BUN 15 mg/dL mg/dL (7-17) Creatinine 0.51 mg/dL L mg/dL (0.52-1.04) Estimated Creat Clear 301 Est GFR ( Amer) > 60 (60 - ) Est GFR (Non-Af Amer) > 60 (60 - ) Glucose 93 mg/dL mg/dL (74-106) Calcium 9.3 mg/dL mg/dL (8.4-10.2) Urine Color Yellow (YELLOW) Urine Appearance Cloudy H (CLEAR) Urine pH 7.0 (5.0 - 8.0) Ur Specific [place] 1.020 (1.010-1.030) Urine Protein 2+ mg/dL H mg/dL (NEGATIVE) Urine Ketones Negative mg/dL mg/dL (NEGATIVE) Urine Occult Blood 3+ H (NEGATIVE) Urine Nitrite Negative (NEGATIVE) Urine Bilirubin Negative (NEGATIVE) Urine Urobilinogen 0.2 Eu Eu (0.2-1.0) Ur Leukocyte Esterase 1+ H (NEGATIVE) Urine Glucose Negative mg/dL mg/dL (NEGATIVE) UA - +3 blood, +2 protein, +1 leukocytes, specific gravity 1.020 - Orders Orders: ED Orders Category Date Time Status Place IV Lock 1T Care 12/18/18 09:56 Active BMP Routine Lab 12/18/18 10:00 Completed CBC/PLATELET/DIFF Routine Lab 12/18/18 10:00 Completed UA MACRO DIP ONLY Routine Lab 12/18/18 09:51 Completed URINE CULTURE Routine Lab 12/18/18 09:51 Received 0.9 % Sodium Chloride [Normal Saline] 1,000 ml Med 12/18/18 09:56 Discontinued IV Q1H Ketorolac Tromethamine [Toradol] Med 12/18/18 09:56 Discontinued 30 mg IV NOW ONE Ondansetron HCl/Pf [Zofran] Med 12/18/18 09:56 Discontinued 4 mg IVP NOW ONE Headache Physical Exam - EXAM General Appearance: no acute distress, alert EENT: PERRL. No: pain over sinuses Neck: supple Respiratory: no resp distress, chest non-tender, breath sounds normal CVS: reg. rate & rhythm, heart sounds nml Abdomen: non-tender, nml bowel sounds, no distention, other (NO CVA tenderness). No: tenderness Skin: color nml, no rash Extremitites: non-tender, normal range of motion, no edema - NEURO/PSYCH Higher Functions: alert, oriented x3, nml speech, mood/affect nml Cranial: no evidence of acute CVA Cerebellar: nml as tested Sensorimotor: motor nml, sensation nml Discharge Clincal Impression: Acute cystitis without hematuria Prescriptions: CiproFLOXacin HCL [Cipro] 500 mg PO BID 5 Days #10 tablet Referrals: Betty Patton PRN [Primary Care Provider] - 2 Days Additional Instructions: 1. Take antibiotic until gone 2. Drink plenty of fluids, Daily goal is 100 ounces. Avoid caffeine and alcohol 3. Ibuprofen 600mg every 6 hours and/or Tylenol 650mg every 4 hours as needed for pain. These may be taken together for better pain control. 4. Follow up with PCP within 1 week 5. Return to ER for new or worsening symptoms Disposition: 01 HOME, SELF-CARE Decision to Admit: NO Date of Decison to Admit: 12/18/18 Decision Time: 11:03
[2018-12-18] MEDS: KETOROLAC TROMETHAMINE 30 MG/1ML VIAL IV ONE (10:07)
[2018-12-18] MEDS: ONDANSETRON HCL/PF 4 MG/ 2ML VIAL IVP ONE (10:08)
[2018-12-18] MEDS: 0.9 % SODIUM CHLORIDE 1,000 ML IV ONE (10:10)
[2018-12-18 10:21] LABS: BASOPHILS % 0.3 % (0.0-1.5); NEUTROPHILS # 6.1 # k/uL (1.4-7.7)
[2018-12-18 10:26] LABS: eGFR (Non-African) > 60
[2018-12-18 10:52] LABS: APPEARANCE,URINE CLOUDY (CLEAR); COLOR,URINE YELLOW (YELLOW); OCCULT BLOOD,URINE 3+ (NEGATIVE); UROBILINOGEN URINE 0.2 Eu (0.2-1.0)
[2018-12-18 11:20] VITALS: BP 126/89
== END 2018-12-18 11:19 | disposition home or self-care (01) ==
LOC: ED 09:34
DX: N30.00 Acute cystitis without hematuria (principal)
CPT/HCPCS: 80048; 81002; 85025; 87086; 87186; 96361; 96374; 96375; 99283; 99284; J1885; J2405; J7030; S1016